=== PATIENT | male | born 1985 | race African-American/Black ===

== ENCOUNTER 2019-06-05 03:55 | Emergency (ER) | payer OTHER ==
[~2019-06-05] VITALS: Ht 167.6 cm; Wt 86.0 kg
[2019-06-05 05:40] VITALS: BP 117/71
== END 2019-06-05 06:35 | disposition home or self-care (01) ==
LOC: ED 06:10
DX: F10.120 Alcohol abuse with intoxication, uncomplicated (principal)
CPT/HCPCS: 99283